=== PATIENT | male | born 1980 ===

== ENCOUNTER 2018-12-31 19:18 | Emergency (ER) | payer SELFPAY ==
[2018-12-31 19:38] VITALS: BP 122/77; PULSE 74; TEMP 97.4; O2SAT 94
[2018-12-31] MEDS ORDERED: Amoxicillin-Clav 875-125 mg Tab PO STA (20:13)
[2018-12-31] MEDS ORDERED: Amoxicillin-Clav 875-125 mg Tab PO ONE (20:31)
--- NOTE | 2018-12-31 20:45 | C.PDOC ---
History Of Present Illness 38 year old male presents to the ER with a complaint of left ear ache for the past 8 months. Patient states he recently came back from [place] where he was being treated with "pain drops", however, he notes he now has tinnitus, hearing loss, and subjective fever. Denies headache or sore throat. Time Seen by Provider: 12/31/18 19:44 Chief Complaint (Nursing): ENT Problem History Per: Patient History/Exam Limitations: None Onset/Duration Of Symptoms: Days Current Symptoms Are (Timing): Still Present Quality (Ear): Other (Pain) Symptoms Have Been: Continuous Past Medical History Reviewed: Historical Data, Nursing Documentation, Vital Signs Vital Signs: Last Vital Signs Temp 97.4 F L 12/31/18 19:31 Pulse 74 12/31/18 19:31 Resp 18 12/31/18 19:31 BP 122/77 12/31/18 19:31 Pulse Ox 94 L 12/31/18 19:31 - Medical History PMH: Denies: Chronic Kidney Disease Family History: States: No Known Family Hx - Social History Hx Alcohol Use: No Hx Substance Use: No - Immunization History Hx Tetanus Toxoid Vaccination: Yes Hx Influenza Vaccination: Yes Hx Pneumococcal Vaccination: Yes Review Of Systems Constitutional: Positive for: Fever (Subjective) ENT: Positive for: Ear Pain, Other (Tinnitus, hearing loss). Negative for: Throat Pain Respiratory: Negative for: Cough Gastrointestinal: Negative for: Nausea, Vomiting Neurological: Negative for: Headache Physical Exam - Physical Exam Appears: Non-toxic Skin: Normal Color, Warm, Dry Head: Atraumatic, Normacephalic Eye(s): bilateral: Normal Inspection Ear(s): Left: TM Erythema, Right: Normal Nose: Normal Oral Mucosa: Moist Throat: Normal, No Erythema, No Exudate Neck: Normal, Supple Lymphatic: No Adenopathy Neurological/Psych: Oriented x3, Normal Speech ED Course And Treatment O2 Sat by Pulse Oximetry: 94 (Room air) Pulse Ox Interpretation: Normal Medical Decision Making Medical Decision Making: Motrin and prednisone administered. Patient is resting comfortably in the ER in no acute distress, afebrile, vitals are stable, patient started on amoxicillin and advised to follow up with PMD. Disposition - Disposition Referrals: Efrain Eduardo MD [Staff Provider] - Disposition: HOME/ ROUTINE Disposition Time: 20:49 Condition: STABLE Additional Instructions: Follow up with the medical doctor within 1-2 days. Return if worsened. 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 - Scribe Statement The provider has reviewed the documentation as recorded by the Scribasya Hathaway All medical record entries made by the Tedibasya were at my direction and personally dictated by me. I have reviewed the chart and agree that the record accurately reflects my personal performance of the history, physical exam, me dical decision making, and the department course for this patient. I have also personally directed, reviewed, and agree with the discharge instructions and disposition.
[2018-12-31 21:22] VITALS: RESP 20
== END 2018-12-31 21:20 | disposition home or self-care (01) ==
LOC: C.ER 19:18
DX: H66.92 Otitis media, unspecified, left ear (principal)

== ENCOUNTER 2019-01-15 17:09 | Emergency (ER) | payer OTHER ==
[2019-01-15 17:15] VITALS: BMI 23.1
[2019-01-15 17:18] VITALS: BP 120/78; PULSE 82; RESP 20; TEMP 98.7; O2SAT 98
--- NOTE | 2019-01-15 17:22 | C.PDOC ---
History Of Present Illness CO PERSIST L EAR PAIN X 8 MONTHS. SEEN 12/31 FOR SAME, COMPLETED RX. WAS SUPPOSED TO FU CLINIC TODAY BUT APPT WAS SCHEDULED TO NEXT WEEK. PAIN INSIDE AND AROUND L EAR. NO SWELL, FEVER, NV, HEARING CHANGE. NO NEW SX SINCE PRIOR ER EVAL 12/31/18 left ear ache for the past 8 months DC Amoxicillin/Clavulanate [Augmentin 875 MG-125 MG] 1 tab PO BID X 10 DAYS, Ibuprofen [Motrin] 600 mg AND predniSONE [Prednisone] 10 mg PO BID #10 tab EXAM NAD HEENT L EAR WNL NO AOM/EXTERNA; TM INTACT R EAR IMPACTED WAX. NO PERIAURAL/POST AURICULAR TEND, DEFORM NEURO ITNACT Time Seen by Provider: 01/15/19 17:19 Chief Complaint (Nursing): ENT Problem History Per: Patient History/Exam Limitations: None Onset/Duration Of Symptoms: Days Current Symptoms Are (Timing): Still Present Severity: Moderate Past Medical History Reviewed: Historical Data, Nursing Documentation, Vital Signs Vital Signs: Last Vital Signs Temp 98.7 F 01/15/19 17:15 Pulse 82 01/15/19 17:15 Resp 20 01/15/19 17:15 BP 120/78 01/15/19 17:15 Pulse Ox 98 01/15/19 17:15 - Medical History PMH: No Chronic Diseases Denies: Chronic Kidney Disease Other Surgeries: Hx of surgeries Family History: States: No Known Family Hx - Social History Hx Alcohol Use: No Hx Substance Use: No - Immunization History Hx Tetanus Toxoid Vaccination: Yes Hx Influenza Vaccination: Yes Hx Pneumococcal Vaccination: Yes Review Of Systems Except As Marked, All Systems Reviewed And Found Negative. Constitutional: Negative for: Fever, Chills ENT: Positive for: Ear Pain (left ear pain) Gastrointestinal: Negative for: Nausea, Vomiting Physical Exam - Physical Exam Appears: No Acute Distress Skin: Normal Color, Warm, Dry Head: Atraumatic, Normacephalic Eye(s): bilateral: Normal Inspection Ear(s): Left: Normal (wnl no aom/externa; TM intact), Right: Other (impacted wax, no periaural/post auricular tend, no deformity) Cardiovascular: Rhythm Regular Respiratory: Other (NARD) Neurological/Psych: Oriented x3, Normal Speech ED Course And Treatment O2 Sat by Pulse Oximetry: 98 (RA) Pulse Ox Interpretation: Normal Medical Decision Making Medical Decision Making: Plan: --Motrin PO --Tylenol PO Disposition Counseled Patient/Family Regarding: Diagnosis, Need For Followup, Rx Given - Disposition [facility]errals: [facility] [Outside] [facility] [Outside] Disposition: HOME/ ROUTINE Disposition Time: 17:28 Condition: GOOD Additional Instructions: FOLLOW UP IN CLINIC SCHEDULED. TAKE MOTRIN AND TYLENOL DIRECTED FOR PAIN. Prescriptions: Carbamide Peroxide [Debrox Ear Drops] 4 drop AD BID #1 bottle Instructions: Ear Wax Impaction (DC) Forms: [employer] (Moldovan) Print Language: AMHARIC - Clinical Impression Clinical Impression: Otalgia, Impacted cerumen of right ear - Scribe Statement The provider has reviewed the documentation as recorded by the Tedibe Ronal Fabian Provider Attestation: All medical record entries made by the Tedibe were at my direction and personally dictated by me. I have reviewed the chart and agree that the record accurately reflects my personal performance of the history, physical exam, medical decision making, and the department course for this patient. I have also personally directed, reviewed, and agree with the discharge instructions and disposition.
== END 2019-01-15 17:56 | disposition home or self-care (01) ==
LOC: C.ER 17:09
DX: H92.02 Otalgia, left ear (principal); H61.21 Impacted cerumen, right ear